=== PATIENT | female | born 1975 | race Caucasian/White ===

== ENCOUNTER 2017-12-18 19:20 | Emergency (ER) | payer MEDICAID ==
[~2017-12-18] VITALS: Ht 160 cm; Wt 80.7 kg
[2017-12-18 19:55] VITALS: Ht 160 cm; Wt 80.7 kg
[2017-12-18 21:38] VITALS: BP 114/76
== END 2017-12-18 21:38 | disposition home or self-care (01) ==
LOC: ED 19:20
DX: S16.1XXA Strain of muscle, fascia and tendon at neck level, initial encounter (principal); W06.XXXA Fall from bed, initial encounter; Y93.89 Activity, other specified; Y92.89 Other specified places as the place of occurrence of the external cause; Y99.8 Other external cause status
CPT/HCPCS: J1885

== ENCOUNTER 2019-06-23 21:44 | Emergency (ER) | payer MEDICAID ==
[~2019-06-23] VITALS: Ht 160 cm; Wt 72.1 kg
[2019-06-23 21:50] VITALS: Ht 160 cm; Wt 72.1 kg
[2019-06-23 22:52] VITALS: BP 125/70
== END 2019-06-23 22:52 | disposition home or self-care (01) ==
LOC: ED 21:44
DX: S13.9XXA Sprain of joints and ligaments of unspecified parts of neck, initial encounter (principal); S23.3XXA Sprain of ligaments of thoracic spine, initial encounter; S40.022A Contusion of left upper arm, initial encounter; T71.9XXA Asphyxiation due to unspecified cause, initial encounter; Y93.89 Activity, other specified; Y99.8 Other external cause status; Y92.89 Other specified places as the place of occurrence of the external cause